=== PATIENT | female | born 1955 | race Caucasian/White ===

== ENCOUNTER 2023-02-14 10:10 | Outpatient (CLI) | payer BC | END 2023-02-14 10:11 | disposition home or self-care (01) | LOC: CSHMAMMO 10:10 | PROVIDERS: ATTEND Internal Medicine | DX: M81.0 Age-related osteoporosis without current pathological fracture (principal); M85.851 Other specified disorders of bone density and structure, right thigh; M85.852 Other specified disorders of bone density and structure, left thigh; Z78.0 Asymptomatic menopausal state | CPT/HCPCS: 77080 ==

== ENCOUNTER 2024-01-07 13:01 | Outpatient (CLI) | payer BC | END 2024-01-07 13:02 | disposition home or self-care (01) | LOC: CSHRAD 13:01 | PROVIDERS: ATTEND Internal Medicine | DX: R91.1 Solitary pulmonary nodule (principal) | CPT/HCPCS: 71046 ==

== ENCOUNTER 2024-12-02 07:27 | Outpatient (CLI) | payer BC ==
[2024-12-02 08:19] LABS: Estimated GFR - POC 70.0
[2024-12-02] MEDS ORDERED: Iopamidol 300 61% 100 ML VIAL FS ONE (09:06)
== END 2024-12-02 07:28 | disposition home or self-care (01) ==
LOC: CSHCT 07:27
PROVIDERS: ATTEND Internal Medicine
DX: R91.1 Solitary pulmonary nodule (principal); K76.89 Other specified diseases of liver; K59.00 Constipation, unspecified
CPT/HCPCS: 71260; 74170; 82565; Q9967